=== PATIENT | female | born 1995 | race Caucasian/White ===

== ENCOUNTER 2022-06-14 19:02 | Emergency (ER) | payer OTHER ==
[~2022-06-14] VITALS: Ht 165.1 cm; Wt 66.2 kg
[2022-06-14] MEDS ORDERED: PEPCID AC20 MG PO (23:12)
[2022-06-14] MEDS ORDERED: CIPRO500 MG PO (23:12)
[2022-06-14] MEDS ORDERED: ZOFRAN8 MG PO (23:12)
== END 2022-06-14 23:27 | disposition home or self-care (01) ==
LOC: ER 19:02
DX: K52.9 Noninfective gastroenteritis and colitis, unspecified (principal)